=== PATIENT | male | born 1995 | race Caucasian/White ===

== ENCOUNTER 2016-05-04 12:06 | Emergency (ER) | payer OTHER ==
[~2016-05-04] VITALS: Ht 193 cm; Wt 102.3 kg
[2016-05-04 12:11] VITALS: Ht 193 cm; Wt 102.3 kg
[2016-05-04] MEDS ORDERED: SODIUM CHLORIDE 0.9% 500ML 500 ML IV STA (14:03)
[2016-05-04 14:22] VITALS: O2SAT 98
--- NOTE | 2016-05-04 14:32 | Gastrointestinal Consultation ---
Gastrointestinal Consultation Date of Consultation: May 04, 2016 Consulting Physician: Yuki Reason for Consultation: food bolus History of Present Illness Patient is a 21 year old male with past medical history significant for asthma( childhood), eosinophilic esophagitis (diagnosed on endoscopy from GI in [place]) and history of 3 food boluses who presents to the ED with sensation of food stuck in his esophagus. He was eating breakfast this morning around 8am when he ate a piece of chicken and immediately felt it stick. This occurs a few times a month but typically the food drops down within a few minutes. At this time he tried to wash the food down with water but he was unable to swallow anything, including his own secretions. Over the past 30 minutes he has been tolerating his secretions better, but is still having issues and feels the food stuck. He reports the last time he had a true food bolus with impaction removal was about three years ago. At this time he was started on an allergy medication but stopped taking it. Denies any fever, chills, chest pain, SOB, abdominal pain , hematemesis/coffee ground emesis, black/bloody stools. No daily NSAID use. No ASA use. No anticoagulation use. No known issues with anesthesia. No known cardiac conditions No known respiratory issues other than childhood asthma. Family History Diabetes mellitus Social History Smoking Status: Never Smoker Current Medications Home Meds and Scripts Medications Dose Route/Sig Max Daily Dose Days Date Category No Active Prescriptions or Reported Medications Rx Review of Systems Constitutional: No fever Respiratory: No cough, No shortness of breath Cardiac: No chest pain, No edema Abdomen: No constipation, No diarrhea, No nausea, No pain, No vomiting Physical Exam Date Time Temp Pulse Resp B/P Pulse Ox O2 Delivery O2 Flow Rate FiO2 05/04/16 12:12 97 Room Air 05/04/16 12:11 37.0 53 18 169/83 97 Room Air General Appearance: + mild distress (patient is in bed holding a cup for secretions) Eyes: PERRL ENT: hearing grossly normal Neck: supple, trachea midline Respiratory/Chest: lungs clear, normal breath sounds, no respiratory distress, no accessory muscle use Cardiovascular: regular rate, rhythm, no edema, no gallop, no JVD, no murmur Abdomen: normal bowel sounds, non tender, soft, no organomegaly, no pulsatile mass Neurologic/Psych: alert, normal mood/affect, oriented x 3 Skin: normal color, no jaundice, warm/dry Impression Patient is a 21 year old male with known history of eosinophilic esophagitis who presents with sensation of food stuck in his throat since 8 am with inability to tolerate anything PO and intermittent intolerability with secretions. Plan NPO EGD for impaction removal with Dr. Mirza Further suggestions pending procedure - likely would benefit from PPI, Flovent Attg addendum: I interviewed and exmained pt, reviewed chart and labs, agree with above. Pt with h/o eoe now with food impaction.
[2016-05-04] MEDS ORDERED: FENTANYL CITRATE INJ 50 MCG/1 ML 2 ML VIAL ONE (15:05)
[2016-05-04] MEDS ORDERED: MIDAZOLAM HCL 1 MG/ML 2ML VIAL ONE (15:06)
--- NOTE | 2016-05-04 15:34 | EMERGENCY ROOM VISIT NOTE ---
History Report prepared by Briseyda: Oliva Yusuf Under the Supervision of: Dr. Lalit Gallegos M.D. First contact with patient: 13:46 Chief Complaint: FOOD BOLUS Stated Complaint: FOOD STUCK IN THROAT Nursing Triage Summary: Pt states since 0830 this morning has a piece of chicken stuck in his throat. Pt states unable to swallow anything including his saliva. Pt states he attempted to make himself vomit without success. Three previous food boluses. Has been scoped in the past. History of Present Illness The patient is a 21 year old male who presents to the Emergency Room with complaints of food bolus starting this morning. The patient was eating breakfast and a piece of chicken became stuck in his throat. He tried taking a hot shower, drinking hot water and carbonated drinks, eating a banana, and vomiting without relief. He can currently feel the piece of chicken stuck in his throat. The patient has been spitting out his saliva since the onset of his symptoms. He denies any shortness of breath, or any other complaints. He has a history of similar symptoms occurring 3 times previously (he has eosinophilic esophagitis) and had an endoscopy each time. His last episode of food bolus occurred about 3 years ago. Source of History: patient Onset: this morning Position: throat Quality: other (food bolus) Modifying Factors (Relieving): other (hot shower, drinking hot water and carbonated drinks, eating banana, and vomiting without relief) Associated Symptoms: No SOB Review of Systems See HPI for pertinent positives & negatives. A total of 10 systems reviewed and were otherwise negative. Past Medical & Surgical Medical Problems: (1) Asthma (2) Eosinophilic esophagitis Family History Diabetes mellitus Social History Smoking Status: Never Smoker Marital Status: single Housing Status: lives with family Occupation Status: student Current/Historical Medications No Active Prescriptions or Reported Meds Physical Exam Vital Signs Date Time Temp Pulse Resp B/P Pulse Ox O2 Delivery O2 Flow Rate FiO2 05/04/16 17:28 36.6 65 18 122/72 98 Room Air 05/04/16 17:00 37.4 58 16 128/72 98 Room Air 05/04/16 16:30 36.7 52 16 137/76 99 Room Air 05/04/16 16:25 36.6 50 14 128/85 97 Room Air 05/04/16 16:15 54 16 144/85 99 Room Air 05/04/16 16:05 67 14 146/85 100 Mask 10 05/04/16 15:55 62 21 139/89 100 Mask 10 05/04/16 15:48 36.6 75 12 149/95 100 Mask 10 05/04/16 14:22 58 18 133/79 98 Room Air 05/04/16 12:12 97 Room Air 05/04/16 12:11 37.0 53 18 169/83 97 Room Air Physical Exam GENERAL: Patient is in no acute distress. HEENT: No acute trauma, normocephalic atraumatic, mucous membranes moist, no nasal congestion, no scleral icterus. NECK: No stridor, no adenopathy, no meningismus, trachea is midline. LUNGS: Clear to auscultation bilaterally, no wheeze, no rhonchi, breath sounds equal. HEART: Bradycardic with a regular rhythm, no murmurs. ABDOMEN: Soft, nontender, bowel sounds positive, no hernias, no peritonitis. EXTREMITIES: No cyanosis or edema, full range of motion of all the joints without pain or difficulty, no signs for acute trauma. NEUROLOGIC: Oriented x 3, no acute motor or sensory deficits, no focal weakness. SKIN: No rash, no jaundice, no diaphoresis. Medical Decision & Procedures Medications Administered Medications (Trade) Dose Ordered Sig/Kitty Route Start Time Stop Time Status Last Admin Dose Admin Sodium Chloride (Nss 500ml) 500 ml @ 999 mls/hr Q31M STAT IV 05/04/16 14:03 05/04/16 14:33 DC 05/04/16 14:18 999 MLS/HR ED Course 1346: The patient was evaluated in room A09B. A complete history and physical exam was performed. 1403: I discussed the patient's case with Dr. Mirza, signal processing engineer with [facility]. 1405: I discussed results and treatment plan with the patient. He verbalizes agreement and understanding. The patient will be evaluated for further management. Medical Decision Differential diagnosis includes but is not limited to esophageal narrowing, esophageal stricture, esophageal rupture, esophageal food bolus. The patient presents with an esophageal food bolus. He has had similar presentations before and has required endoscopy. He has eosinophilic esophagitis. The patient is spitting out his saliva, he cannot swallow any liquid. His lungs are clear, he is in no distress. I did contact the on-call GI physician. The patient will be going to the endoscopy lab for removal of the bolus. He did receive some IV saline during his ER stay, no laboratory testing required. Consults Time Called: 1400 Consulting Physician: Dr. Mirza, signal processing engineer with [facility] [address] Returned Call: 1403 I discussed the patient's case with Dr. Mirza, signal processing engineer with [facility] [address]. Impression Primary Impression: Esophageal obstruction due to food impaction Scribe Attestation The scribe's documentation has been prepared under my direction and personally reviewed by me in its entirety. I confirm that the note above accurately reflects all work, treatment, procedures, and medical decision making performed by me. Departure Information Dispostion Other (Dr. Mirza, signal processing engineer) Prescriptions No Active Prescriptions or Reported Meds Referrals No Doctor, Assigned (PCP) Patient Instructions [facility]
--- NOTE | 2016-05-04 15:41 | Discharge Instructions ---
Endoscopy Patient Instructions Date / Procedure(s) Performed May 04, 2016. EGD Discharge Date / Findings May 04, 2016. Eosinophilic esophagitis Food bolus Esophageal tear from retching or secondary to food bolus Provider Instructions Activity Restrictions - No exercising or heavy lifting for 24 hours. - Do not drink alcohol the day of the procedure. - Do not drive a car or operate machinery until the day after the procedure. - Do not make any important decisions or sign important papers in 24 hours after the procedure. Following Day: - Return to full activity which may include returning to work/school. Diet Start your diet with liquids and light foods (jello, soup, juice, toast). Then eat your usual diet if not nauseated. Treatment For Common After Affects For mild abdominal pain, bloating, or excessive gas: - Rest - Eat lightly - Lie on right side Begin Prilosec twice daily Follow-Up Information Follow-up with as scheduled Anesthesia Information What You Should Know You have had a procedure that required some medicine to reduce anxiety and discomfort. This treatment is called moderate sedation. After receiving the treatment, you may be sleepy, but you will be able to breathe on your own. The effects of the treatment may last for several hours. Follow these instructions along with Activity/Diet recommendations noted above: * Do NOT do anything where dizziness or clumsiness would be dangerous. * Rest quietly at home today, then you can be up and about tomorrow. * Have a responsible person stay with you the rest of today. * You may have had an I.V. today. If so, you may take the dressing off later today. Recommendations Call your doctor if: * Trouble breathing * Continuous vomiting for more than 24 hours * Temperature above 101 degrees * Severe abdominal pain or bloating * Pain not relieved by pain medicine ordered * There is increased drainage or redness from any incision * A large amount of rectal bleeding greater than 2-3 tablespoons. (If you had a polyp/s removed or have hemorrhoids, a small amount of blood - from the rectum is to be expected.) * You have any unanswered questions or concerns. IN THE EVENT OF A SERIOUS EMERGENCY, GO TO THE NEAREST EMERGENCY ROOM Your discharge instructions were prepared by provider Rubina Matute. Patient Instructions Signature Page Daniel Romeo Patient (or Guardian) Signature/Date: I have read and understand the instructions given to me by my caregivers. Caregiver/RN/Doctor Signature/Date: The above-named patient and/or guardian has received patient instructions on this date. + Original Patient Signature Page (only) stays with chart. Please make copy for patient.
--- NOTE | 2016-05-04 15:49 | GI REPORT ---
Procedure Date: 05/04/2016 2:54 PM Procedure: Upper GI endoscopy Indications: Foreign body in the esophagus Medicines: See the Anesthesia note for documentation of the administered medications Complications: No immediate complications. Estimated Blood Loss: Estimated blood loss: none. Procedure: Pre-Anesthesia Assessment: - ASA Grade Assessment: II - A patient with mild systemic disease. After obtaining informed consent, the endoscope was passed under direct vision. Throughout the procedure, the patient's blood pressure, pulse, and oxygen saturations were monitored continuously. The Scope was introduced through the mouth, and advanced to the middle third of esophagus. The Endoscope was introduced through the mouth, and advanced to the body of the stomach. The upper GI endoscopy was accomplished without difficulty. The patient tolerated the procedure well. Findings: Mucosal changes including ringed esophagus, feline appearance and longitudinal furrows were found in the entire esophagus. Food was found in the middle third of the esophagus. Removal of food was accomplished with a snare. There was a stricture at 30 cm that could not be passed using an adult endoscope. The food bolus was lodged at this stricture. The ultra thin scope was used to pass this stricture. There was a long linear tear distal to this stricture. This was noted when the food bolus was removed, and is not likely secondary to scope trauma. There was food in the stomach. The stomach was grossly normal. Impression: - Esophageal mucosal changes consistent with eosinophilic esophagitis. - Food in the middle third of the esophagus. Removal was successful. - Stricture at 30 cm. - Spontaneous tear in distal esophagus. Recommendation: - Discharge patient to home. - Twice daily PPI. Will defer initiation of steroids to primary post commander. - Clears only today, then advance to full liquids if pt has no chest pain. Pt should remain on full liquids until seen in follow up. Will likely need repeat EGD for dilation of mid esophageal stricture. Rubina Mirza M.D. Rubina Mirza MD 05/04/2016 3:48:57 PM This report has been signed electronically. Note Initiated On: 05/04/2016 2:54 PM I attest to the content of the Intraoperative Record and orders documented therein, exceptions below
[2016-05-04] MEDS ORDERED: PROPOFOL IV EMULSION 10 MG/ML 20 ML VIAL IV ONE (15:51)
[2016-05-04] MEDS ORDERED: LIDOCAINE HCL 2% 2 ML VIAL (20MG/ML) ONE (15:51)
[2016-05-04] MEDS ORDERED: SUCCINYLCHOLINE CHLORIDE 20 MG/ML 10 ML VIAL IV ONE (15:51)
[2016-05-04] MEDS ORDERED: PATIENT'S ALLERGY INFO NEEDS ENTERED SCH (16:00)
[2016-05-04] MEDS ORDERED: ATROPINE SULFATE 0.1 MG/ML 5ML SYR IV PRN (16:00)
[2016-05-04] MEDS ORDERED: EpHEDrine SULFATE INJ 50 MG/ML AMP IV PRN (16:00)
--- NOTE | 2016-05-04 16:18 | Anesthesiology Progress Note ---
Anesthesia Post Op Note Date & Time May 04, 2016 at 16:18 Vital Signs Pain Intensity: 3 Vital Signs Past 12 Hours Date Time Temp Pulse Resp B/P Pulse Ox O2 Delivery O2 Flow Rate FiO2 05/04/16 16:15 54 16 144/85 99 Room Air 05/04/16 16:05 67 14 146/85 100 Mask 10 05/04/16 15:55 62 21 139/89 100 Mask 10 05/04/16 15:48 36.6 75 12 149/95 100 Mask 10 05/04/16 14:22 58 18 133/79 98 Room Air 05/04/16 12:12 97 Room Air 05/04/16 12:11 37.0 53 18 169/83 97 Room Air Notes Mental Status: alert / awake / arousable, participated in evaluation Pt Amnestic to Procedure: Yes Nausea / Vomiting: adequately controlled Pain: adequately controlled Airway Patency, RR, SpO2: stable & adequate BP & HR: stable & adequate Hydration State: stable & adequate Anesthetic Complications: no major complications apparent
[2016-05-04 16:30] VITALS: BP 137/76; PULSE 52; TEMP 36.7; O2SAT 99
[2016-05-04 17:00] VITALS: BP 128/72; PULSE 58; TEMP 37.4; O2SAT 98
[2016-05-04 17:28] VITALS: BP 122/72; PULSE 65; TEMP 36.6; O2SAT 98
== END 2016-05-04 14:30 | disposition home or self-care (01) ==
LOC: C.EDB 12:09 → C.EDA 14:30
DX: T17.920A Food in respiratory tract, part unspecified causing asphyxiation, initial encounter (principal); K20.0 Eosinophilic esophagitis; J45.909 Unspecified asthma, uncomplicated; Z83.3 Family history of diabetes mellitus; X58.XXXA Exposure to other specified factors, initial encounter